=== PATIENT | male | born 1950 | race Caucasian/White ===

== ENCOUNTER 2024-03-20 15:56 | Emergency (ER) | payer MEDICARE, SELFPAY ==
[2024-03-20 16:01] VITALS: BP 102/64
[2024-03-20 16:49] LABS: % Basophils 1.3 % (0-2); % Eosinophils 4.3 % (0-6); % Immature Granulocytes 0.4 % (0-0.5); % Lymphocytes 20.9 % (20.5-51.1); % Monocytes 9.6 % (1.7-9.3); % Neutrophils 63.5 % (42.2-75.2); Absolute Basophils 0.1 10^3/uL (0-0.2); Absolute Eosinophils 0.3 10^3/uL (0-0.7); Absolute Lymphocytes 1.5 10^3/uL (1.2-3.4); Absolute Monocytes 0.7 10^3/uL (0.1-0.6); Absolute Neutrophils 4.5 10^3/uL (1.4-6.5); Hematocrit 37.2 % (39.0-52.0); Hemoglobin 13.6 g/dL (13.0-18.0); Mean Corp Hgb Conc. 36.6 g/dL (33.0-37.0); Mean Corpuscular Hgb 31.5 pg (27.0-31.0); Mean Corpuscular Volume 86.1 fL (80.0-94.0); Mean Platelet Volume 10.1 fL (7.4-10.4); Nucleated Red Blood Cells % 0 % (-); Platelet Count 214 10^3/uL (130-400); Red Blood Cell Count 4.32 10^6/uL (4.70-6.10); Red Cell Dist. Width 13.2 % (11.5-14.5); White Blood Cell Count 7.2 10^3/uL (4.8-10.8)
[2024-03-20 17:02] LABS: ALT (SGPT) 19 U/L (0-50); AST (SGOT) 25 U/L (17-59); Albumin 4.2 g/dl (3.5-5.0); Alkaline Phosphatase 50 U/L (38-126); Blood Urea Nitrogen 27 mg/dl (9-20); Calcium 9.8 mg/dl (8.4-10.2); Carbon Dioxide 26 mmol/L (22-30); Chloride 102 mmol/L (98-107); Glucose 89 mg/dl (70-99); Potassium 4.1 mmol/L (3.5-5.1); Sodium 135 mmol/L (135-145); Total Bilirubin 0.9 mg/dl (0.2-1.3); Total Protein 6.6 g/dl (6.3-8.2); eGFR > 60.00
[2024-03-20 17:11] LABS: NT-proBNP 82.3 pg/ml
--- NOTE | 2024-03-20 20:32 | ED.GENMED ---
History of Present Illness
General
Chief Complaint: Skin Problem
Source: patient
Exam Limitations: none
Time Seen by Provider: 03/20/24 17:02
Nursing documentation reviewed up to this point in time: agreed with
History of Present Illness
History of Present Illness:
Patient to ED with complaint of pain and swelling to LLE. Symptoms started this past week. No history of trauma. Concern for DVT. Hx if prior DVT approx 16 years ago. Brought to ED by spouse for eval.
Past History
Past History
ED Past Medical History: None
Review of Systems
Review of Systems
Allergies reviewed?: Yes
All Other Systems: ROS reviewed and negative except as documented in HPI and ROS
Constitutional: Reports no symptoms
EENT: Reports no symptoms
Respiratory: Reports no symptoms
Cardiac: Reports no symptoms
ABD/GI: Reports no symptoms
Musculoskeletal: Reports other (Pain and swelling to LLE)
Skin: Reports other (swelling LLE)
Neurological: Reports no symptoms
Psychiatric: Reports no symptoms
Phy Exam
General Physical Exam
General Presentation: well appearing and no apparent distress
General age: appears stated age
General Skin: warm and dry
General Habitus: normal
General Mental: alert
Musculoskeletal Exam
Musculoskeletal Exam: full ROM, neuro vasc intact and other (Swelling LLE knee to foot)
Skin Exam
Skin Exam: normal color and warm/dry
Psychiatric Exam
Psychiatric Exam: normal mood/affect
Course
Orders/Labs/Results
Orders:
Orders
03/20/24 16:32
BNP [NT-proBNP] Urgent
CMP [Comprehensive Metabolic Panel] Urgent
Complete Blood Count/With Diff Urgent
03/20/24 17:08
US Periph Venous LOWER Ext LT Urgent
Comment:
Reason For Exam: LLE pain and swelling
Abnormal Lab Results
07/10/24
16:32
RBC 4.32 L 10^6/uL
(4.70-6.10)
Hct 37.2 L %
(39.0-52.0)
MCH 31.5 H pg
(27.0-31.0)
Absolute Monos (auto) 0.7 H 10^3/uL
(0.1-0.6)
Monocytes % 9.6 H %
(1.7-9.3)
BUN 27 H mg/dl
(9-20)
03/20/24 16:32
03/20/24 16:32
Vital Signs
Initial and Last Documented VS:
Initial Vital Signs
Temp Pulse Resp BP Pulse Ox
98.4 F 57 18 102/64 95
03/20/24 16:01 03/20/24 16:01 03/20/24 16:01 03/20/24 16:01 03/20/24 16:01
Last Documented Vital Signs
Temp Pulse Resp BP Pulse Ox
98.4 F 57 18 102/64 95
03/20/24 16:01 03/20/24 16:01 03/20/24 16:01 03/20/24 16:01 03/20/24 16:01
*Radiology
Radiology exam reviewed: radiology read reviewed
*Pulse Oximetry
Patient hypoxic: no
*Critical Care Note
Total Time (30-74mins, 75-104mins- exclusive of procedures): Not Applicable
Update Note
Update Note:
Patient report intermittent muscle spmasm to mid abdomen and back. No symptoms while in ED given rx for short course of prn flexeril. Will follow up with PCP
ED Attending Note
-
Portions of this chart may have been created with voice recognition software.� Occasional wrong word or��sound alike� substitutions may have occurred due to the inherent limitations of voice recognition software.
Discharge Plan
Departure
Patient Disposition: Home (Routine Discharge)
Date of Disposition: 03/20/24
Time of Disposition: 18:42
Patient with high blood pressure during this ER visit?: No
Condition: Good
Covid-19: Not Applicable
Discharge Problem:
Left leg swelling
Instructions: Moore's Cyst (DC)
Prescriptions:
New
cyclobenzaprine 10 mg tablet
10 mg PO TID PRN (Reason: muscle spasms) Qty: 14 0RF
Referrals:
Sarath Garner MD [Family Provider] - Follow up in 2-3 days
Interventions
Interventions:
*Risk Screen - Suicide Last Done: 03/20/24 18:51
*General Assessment Last Done: 03/20/24 17:06
*Neglect/Abuse Screening Last Done: 03/20/24 17:06
ED- Fall Risk Assessment Last Done: 03/20/24 17:06
*ED COVID-19 Vaccine History Last Done: 03/20/24 18:51
*Nursing Disposition Last Done: 03/20/24 18:51
ED-Skin Assessment Last Done: 03/20/24 17:11
Discharge Date and Time
Discharge Date/Time: 03/20/24 18:55
Print Language: [id number]
== END 2024-03-20 18:55 | disposition home or self-care (01) ==
LOC: EMR 15:56
PROVIDERS: Emergency Medicine; EMERGENCY PHYSICIAN Emergency Medicine; FAMILY PHYSICIAN Internal Medicine
DX: R22.42 Localized swelling, mass and lump, left lower limb (principal)
CPT/HCPCS: 99284; 80053; 83880; 85025; 93971